=== PATIENT | female | born 1965 | race Caucasian/White ===

== ENCOUNTER → 2016-11-12 | Outpatient (CLI) | payer OTHER ==
--- NOTE | 2016-11-12 07:56 | MR ---
EXAMINATION TYPE: MR knee LT wo con DATE OF EXAM: 11/12/2016 6:24 AM COMPARISON: NONE HISTORY: Left knee pain and swelling for 2 months. TECHNIQUE: Multiplanar, multisequence images of the knee is performed without IV contrast. FINDINGS: MEDIAL MENISCUS: There is some increased linear signal central body extending towards posterior horn of medial meniscus seen best on sagittal image 24 and coronal image 18, does not distinctly extend to articular surface. LATERAL MENISCUS: Anterior and posterior horns are intact without tear. CRUCIATE LIGAMENTS: The anterior and posterior cruciate ligaments are intact and unremarkable. COLLATERAL LIGAMENTS: The medial collateral ligament and lateral collateral ligament complex are inta ct and unremarkable. EXTENSOR MECHANISM: Visualized quadriceps and patellar tendons are intact. EFFUSION: There is moderate size suprapatellar joint effusion. POPLITEAL CYST: There is moderate-sized popliteal/cash cyst measuring 4.9 cm on long axis on sagitta l image 22. Some adjacent fluid extending inferiorly and posteriorly suggests leak. TRICOMPARTMENT SPACES: Mild joint space loss lateral and medial tibiofemoral compartments with mild s purring is seen. There is more moderate to severe joint space loss patellofemoral compartment with mi ld spurring. CARTILAGE: There is full-thickness cartilaginous loss or significant chondromalacia patella along the posterior patellar pole noted. Articular cartilage is fairly well-maintained medial and lateral tib iofemoral compartments. BONE MARROW SIGNAL: In the fibular head there is 1.4 x 1.0 cm heterogeneous lesion with round T2 hype rintense areas, etiology uncertain favor benign process. There are some areas of increased signal presumed edema along the posterior patellar pole for referen ce axial image 20 sites of full-thickness cartilaginous loss. OTHER: No additional significant abnormality is appreciated. IMPRESSION: 1. Intrasubstance tear central body and posterior horn of medial meniscus. 2. Moderate to advanced degenerative changes patellofemoral compartment with prominent cartilaginous loss and full-thickness chondromalacia patella with associated bony changes or osseous edema along th e posterior patellar pole noted. 3. Moderate suprapatellar joint effusion. 4. Moderate leaking Cash's cyst.
== END | disposition home or self-care (01) ==
LOC: RADMRIMAIN 05:45
PROVIDERS: ATTEND Internal Medicine
DX: S83.242A Other tear of medial meniscus, current injury, left knee, initial encounter (principal); M22.42 Chondromalacia patellae, left knee; M25.462 Effusion, left knee; M66.0 Rupture of popliteal cyst; Y99.9 Unspecified external cause status

== ENCOUNTER → 2017-09-16 | Outpatient (CLI) | payer OTHER ==
--- NOTE | 2017-09-16 16:27 | CT ---
EXAMINATION TYPE: CT abdomen pelvis w con DATE OF EXAM: 09/16/2017 HISTORY: Lower pelvic pain that is worsening. CT DLP: 1434mGycm Automated Exposure Control for Dose Reduction was Utilized. CONTRAST: CT scan of the abdomen and pelvis is performed with oral and with IV Contrast, patient injected with 100 mL of Omnipaque 300. COMPARISON: None. FINDINGS: LUNG BASES: No significant abnormality is appreciated. LIVER/GB: No significant abnormality is appreciated. PANCREAS: No significant abnormality is seen. SPLEEN: No significant abnormality is seen. ADRENALS: No significant abnormality is seen. KIDNEYS: No significant abnormality is seen. BOWEL: Oral contrast reaches level of the hepatic flexure. There is no suspicious small or large stanley l dilatation seen. There is some redundancy of the sigmoid colon. UTERUS/ADNEXA: Anteverted uterus is seen. There is diverging uterine horns towards fundus suggesting arcuate type uterus seen best on coronal images. Endometrium is prominent or abnormal if patient is p ostmenopausal, correlate clinically. Pelvic ultrasound can be performed to further evaluate based on clinical correlation is necessary. Both ovaries are seen. No suspicious enlargement is present. LYMPH NODES: No greater than 1cm abdominal or pelvic lymph nodes are appreciated. OSSEOUS STRUCTURES: No significant abnormality is seen. OTHER: No significant additional abnormality is seen. IMPRESSION: Attention to the uterus as detailed above. No significant acute finding is seen to accoun t for patient's clinical symptoms.
== END | disposition home or self-care (01) ==
LOC: RADCTMAIN 15:51
PROVIDERS: ATTEND Internal Medicine
DX: R10.31 Right lower quadrant pain (principal)
CPT/HCPCS: 74177; Q9967

== ENCOUNTER → 2017-10-07 | Outpatient (CLI) | payer OTHER ==
--- NOTE | 2017-10-08 11:39 | MM ---
Reason for exam: screening (asymptomatic). Last mammogram was performed 2 years and 9 months ago. Physical Findings: A clinical breast exam by your physician is recommended on an annual basis and results should be correlated with mammographic findings. MG Screening Mammo w CAD Bilateral CC and MLO view(s) were taken. Prior study comparison: December 20, 2014, bilateral MG screening mammo w CAD. April 30, 2014, right breast MG diagnostic mammo RT w CAD. The breast tissue is heterogeneously dense. This may lower the sensitivity of mammography. No suspicious abnormality. No significant changes when compared with prior studies. ASSESSMENT: Negative, BI-RAD 1 RECOMMENDATION: Routine screening mammogram of both breasts in 1 year.
== END | disposition home or self-care (01) ==
LOC: RADMAMWWP 10:43
PROVIDERS: ATTEND Internal Medicine
DX: Z12.31 Encounter for screening mammogram for malignant neoplasm of breast (principal)
CPT/HCPCS: 77067

== ENCOUNTER 2018-01-21 14:21 | Emergency (ER) | payer OTHER ==
[2018-01-21 14:25] VITALS: TEMP 98.4
[2018-01-21] MEDS ORDERED: diphenhydrAMINE 50 MG/ML 1 ML VIAL IVP STA (14:57)
[2018-01-21] MEDS ORDERED: methylPREDNISolone SOD SUCCI 125 MG/2 ML VIAL IV STA (14:57)
[2018-01-21] MEDS ORDERED: FAMOTIDINE 20 MG/2 ML VIAL IV STA (14:57)
[2018-01-21] MEDS ORDERED: IPRATROPIUM-ALBUTEROL 3 ML NEB INHALATION STA (14:58)
--- NOTE | 2018-01-21 15:01 | ED ---
General Adult HPI - General Chief complaint: Shortness of Breath Stated complaint: Asthma Time Seen by Provider: 01/21/18 14:55 Source: patient, RN notes reviewed Mode of arrival: ambulatory Limitations: no limitations - History of Present Illness Initial comments: Patient is a pleasant 52-year-old female presenting to the emergency Department with ALLERGIC reaction. Patient states couple hours ago she was mixing some powdered fiber. Patient states this did call up on her and got on her face. Patient also believes somebody fiber. Patient has felt like she is having ALLERGIC reaction since that time. Patient does have some swelling of her face and upper mouth. Patient I is irritated. Patient does feel short of breath. Patient has had similar symptoms previously associated with ALLERGIC reaction. Patient does have history of asthma, last asthma attack was a couple years ago. Patient did try some pediatric albuterol earlier without much improvement of symptoms. - Related Data Home Medications Medication Instructions Recorded Confirmed Desloratadine [Clarinex] 5 mg PO DAILY 01/13/15 01/21/18 Esomeprazole Magnesium [NexIUM] 40 mg PO DAILY 01/13/15 01/21/18 Propafenone [Rythmol] 225 mg PO Q8H 01/13/15 01/21/18 Albuterol Inhaler [Ventolin Hfa 2 puff INHALATION RT-Q6H PRN 01/21/18 01/21/18 Inhaler] Ibuprofen [Motrin] 800 mg PO TID PRN 01/21/18 01/21/18 diphenhydrAMINE [Benadryl] 25 mg PO DAILY PRN 01/21/18 01/21/18 Previous Rx's Medication Instructions Recorded Albuterol Inhaler [Ventolin Hfa 2 puff INHALATION Q4HR PRN #1 01/21/18 Inhaler] inhaler predniSONE 20 mg PO BID #10 tab 01/21/18 Allergies Allergy/AdvReac Type Severity Reaction Status Date / Time erythromycin base Allergy Unknown Verified 01/21/18 15:24 Penicillins Allergy Unknown Verified 01/21/18 15:24 atorvastatin calcium AdvReac Unknown Verified 01/21/18 15:24 [From Lipitor] codeine AdvReac Unknown Verified 01/21/18 15:24 lidocaine AdvReac Unknown Verified 01/21/18 15:24 metoprolol tartrate AdvReac Unknown Verified 01/21/18 15:24 [From Lopressor] procainamide HCl AdvReac Unknown Verified 01/21/18 15:24 [From Procan SR] rosuvastatin calcium AdvReac Unknown Verified 01/21/18 15:24 [From Crestor] Sulfa (Sulfonamide AdvReac Unknown Verified 01/21/18 15:24 Antibiotics) Review of Systems ROS Statement: Those systems with pertinent positive or pertinent negative responses have been documented in the HPI. ROS Other: All systems not noted in ROS Statement are negative. Constitutional: Denies: fever Eyes: Reports: other (Right eye itching in her to the) ENT: Denies: throat pain Respiratory: Reports: dyspnea Cardiovascular: Denies: palpitations Endocrine: Denies: fatigue Gastrointestinal: Denies: abdominal pain Genitourinary: Denies: dysuria Musculoskeletal: Denies: back pain Skin: Denies: lesions Neurological: Denies: weakness Past Medical History Past Medical History: Atrial Fibrillation, Asthma, GERD/Reflux, Hyperlipidemia History of Any Multi-Drug Resistant Organisms: None Reported Past Surgical History: Section Past Psychological History: No Psychological Hx Reported Smoking Status: Former smoker Past Alcohol Use History: None Reported Past Drug Use History: None Reported General Exam Limitations: no limitations General appearance: alert, in no apparent distress Head exam: Present: atraumatic Eye exam: Present: conjunctival injection (Right-sided) ENT exam: Present: other (Minimal uvula edema) Neck exam: Present: normal inspection Respiratory exam: Present: wheezes Cardiovascular Exam: Present: regular rate, normal rhythm GI/Abdominal exam: Present: soft. Absent: tenderness Extremities exam: Present: normal inspection Neurological exam: Present: alert Psychiatric exam: Present: normal affect, normal mood Skin exam: Present: other (Facial flushing) Course Vital Signs 01/21/18 01/21/18 01/21/18 14:23 14:32 15:01 Temperature 98.4 F Pulse Rate 92 82 Respiratory 26 H 20 18 Rate Blood Pressure 127/80 185/72 O2 Sat by Pulse 93 L 96 Oximetry 01/21/18 01/21/18 15:10 15:18 Temperature Pulse Rate 80 80 Respiratory Rate Blood Pressure O2 Sat by Pulse Oximetry Medical Decision Making - Medical Decision Making Patient reevaluated and significantly improved. Lung sounds are clear to auscultation. No facial flushing. Conjunctival injection has resolved. Patient is symptom-free and request discharge home. Patient advised to continue Claritin. Disposition Clinical Impression: Allergic reaction Disposition: HOME SELF-CARE Condition: Stable Instructions: Bronchospasm (ED), Allergies (ED) Additional Instructions: Continue Claritin. Return for difficulty in breathing, swelling of the throat or tongue or lips, worsening symptoms or other concerns. Prescriptions: Albuterol Inhaler [Ventolin Hfa Inhaler] 2 puff INHALATION Q4HR PRN #1 inhaler PRN Reason: Dyspnea predniSONE 20 mg PO BID #10 tab Is patient prescribed a controlled substance at d/c from ED?: No Referrals: Raúl Kee MD [Primary Care Provider] - 1-2 days Time of Disposition: 16:35
[2018-01-21 16:49] VITALS: BP 124/65; PULSE 75; RESP 16
== END 2018-01-21 16:49 | disposition home or self-care (01) ==
LOC: EC 14:21
DX: R06.02 Shortness of breath (principal); R22.0 Localized swelling, mass and lump, head; T50.995A Adverse effect of other drugs, medicaments and biological substances, initial encounter; I48.91 Unspecified atrial fibrillation; K21.9 Gastro-esophageal reflux disease without esophagitis; Z88.0 Allergy status to penicillin; Z88.1 Allergy status to other antibiotic agents; Z88.2 Allergy status to sulfonamides; Z88.4 Allergy status to anesthetic agent; Z88.5 Allergy status to narcotic agent; Z88.8 Allergy status to other drugs, medicaments and biological substances; Z79.899 Other long term (current) drug therapy; Z87.891 Personal history of nicotine dependence
CPT/HCPCS: 99284; 96374; 96375 ×2; 94640; J1200; J2930

== ENCOUNTER → 2018-08-08 | Outpatient (CLI) | payer OTHER ==
--- NOTE | 2018-08-08 14:11 | CT ---
EXAMINATION TYPE: CT abdomen pelvis w con DATE OF EXAM: 08/08/2018 COMPARISON: 09/16/2017 HISTORY: right side groin pain after hernia repair [id number] CT DLP: 1796.2 mGycm CONTRAST: CT scan of the abdomen and pelvis is performed with Oral Contrast and with IV Contrast, patient injec azra with 100 mL of Isovue 300. FINDINGS: LUNG BASES-: No visible nodule. No infiltrate. Small hiatal hernia. LIVER/GB: No calcified gallstones. No space occupying hepatic lesion. Biliary tree is of normal ca liber. PANCREAS: No inflammation. No distinct mass. SPLEEN: No splenic enlargement. No lesion seen. ADRENALS: No nodule. No thickening. KIDNEYS/BLADDER: No hydronephrosis. No nephrolithiasis. No distinct renal mass. Urinary bladder g rossly unremarkable. BOWEL: Normal appendix. Normal bowel caliber. No inflammation. GENITAL ORGANS: Right ovarian cyst measuring 1.9 cm. Left ovarian cystic lesion measuring 4.1 cm. No uterine masses identified. LYMPH NODES: No greater than 1cm abdominal or pelvic lymph nodes are appreciated. AORTA: No significant abnormality. OSSEOUS STRUCTURES: No significant abnormality is seen. OTHER: No significant additional abnormality is seen. IMPRESSION: 1. Ovarian cystic changes noted.
== END ==
LOC: RADCTMAIN 11:58
PROVIDERS: ATTEND Internal Medicine
DX: N83.209 Unspecified ovarian cyst, unspecified side (principal)
CPT/HCPCS: 74177; Q9967

== ENCOUNTER → 2019-06-11 | Outpatient (CLI) | payer OTHER ==
--- NOTE | 2019-06-12 13:33 | MM ---
Reason for exam: screening (asymptomatic). Last mammogram was performed 1 year and 8 months ago. Physical Findings: A clinical breast exam by your physician is recommended on an annual basis and results should be correlated with mammographic findings. MG Screening Mammo w CAD Bilateral CC, MLO, and XCCL view(s) were taken. Prior study comparison: October 07, 2017, bilateral MG screening mammo w CAD. December 20, 2014, bilateral MG screening mammo w CAD. The breast tissue is heterogeneously dense. This may lower the sensitivity of mammography. Finding #1: There is a 10 mm obscured lobulated mass located 3-4 cm from the nipple in the anterior middle position of the left breast. Finding #2: There are typically benign round calcifications in both breasts. ASSESSMENT: Incomplete: need additional imaging evaluation, BI-RAD 0 RECOMMENDATION: Ultrasound of the left breast. [facility] will attempt to contact patient to return for ultrasound.
== END | disposition home or self-care (01) ==
LOC: RADMAMWWP 14:31
PROVIDERS: ATTEND Internal Medicine
DX: Z12.31 Encounter for screening mammogram for malignant neoplasm of breast (principal)
CPT/HCPCS: 77067

== ENCOUNTER → 2019-06-26 | Outpatient (CLI) | payer OTHER ==
--- NOTE | 2019-06-29 09:02 | USB ---
Reason for exam: additional evaluation requested from abnormal screening. US Breast Workup Limited LT Left limited breast ultrasound including focal area of concern, retroareolar and axilla demonstrates a 0.3 x 0.3 x 0.3cm cystic lesion at 3 o'clock and a 0.5 x 0.4 x 0.5cm cystic lesion at 5 o'clock. Retrospectively the central left focal asymmetry is stable back to 2015 representing fibroglandular tissue. These results were verbally communicated with the patient and result sheet given to the patient on 06/26/19. ASSESSMENT: Benign, BI-RAD 2 RECOMMENDATION: Return to routine screening mammogram schedule for both breasts.
== END | disposition home or self-care (01) ==
LOC: RADUSWWP 13:32
PROVIDERS: ATTEND Internal Medicine
DX: R92.8 Other abnormal and inconclusive findings on diagnostic imaging of breast (principal)

== ENCOUNTER → 2021-07-21 | Outpatient (CLI) | payer OTHER ==
--- NOTE | 2021-07-24 12:28 | MM ---
Reason for exam: screening (asymptomatic). Last mammogram was performed 2 years and 1 month ago. History: Family history of breast cancer in sister at age 54. Physical Findings: A clinical breast exam by your physician is recommended on an annual basis and results should be correlated with mammographic findings. MG Screening Mammo w CAD Bilateral CC and MLO view(s) were taken. Prior study comparison: June 11, 2019, bilateral MG screening mammo w CAD. October 07, 2017, bilateral MG screening mammo w CAD. The breast tissue is heterogeneously dense. This may lower the sensitivity of mammography. There are benign appearing round calcifications bilaterally. There is no discrete abnormality. ASSESSMENT: Benign, BI-RAD 2 RECOMMENDATION: Routine screening mammogram of both breasts in 1 year.
== END | disposition home or self-care (01) ==
LOC: RADMAMWWP 14:58
PROVIDERS: ATTEND Family Medicine
DX: Z12.31 Encounter for screening mammogram for malignant neoplasm of breast (principal); Z80.3 Family history of malignant neoplasm of breast
CPT/HCPCS: 77067

== ENCOUNTER → 2022-12-12 | Outpatient (CLI) | payer OTHER ==
--- NOTE | 2022-12-12 12:50 | US ---
EXAMINATION TYPE: US groin LT DATE OF EXAM: 12/12/2022 COMPARISON: CT abdomen and pelvis 2017 CLINICAL INDICATION: Female, 57 years old with history of K40.90 LT INGUINAL HERNIA, W/O OBST OR GANG R, NO; TECHNIQUE: Scanned over the patient's left groin/pubic area as directed by patient as her area of pa in. FINDINGS: No abnormality noted by US. Results called to Khushbu in the office at the time of the exam. IMPRESSION: Images obtained show no worrisome solid or cystic mass or fluid collection. No bowel con taining hernia is evident.
== END | disposition home or self-care (01) ==
LOC: RADUSWWP 12:18
PROVIDERS: ATTEND Family Medicine
DX: K40.90 Unilateral inguinal hernia, without obstruction or gangrene, not specified as recurrent (principal)

== ENCOUNTER → 2023-10-07 | Outpatient (CLI) | payer OTHER ==
[2023-10-07 14:54] LABS: Basophils # (A) 0.04 X 10*3/uL (0.00-0.10); Basophils % (A) 0.7 %; Eosinophils # (A) 0.28 X 10*3/uL (0.04-0.35); Eosinophils % (A) 5.1 %; HCT 41.5 % (37.2-46.3); HGB 13.9 g/dL (12.0-15.0); Lymphocytes # (A) 1.43 X 10*3/uL (0.90-5.00); MCH 31.3 pg (27.0-32.0); MCHC 33.5 g/dL (32.0-37.0); MCV 93.5 FL (80.0-97.0); Mean Platelet Volume 10.3 FL (9.5-12.2); Monocytes # (A) 0.32 X 10*3/uL (0.20-1.00); Monocytes % (A) 5.8 %; NRBC Per 100 WBC 0 X 10*3/uL (0.00-0.01); Neutrophils # (A) 3.42 X 10*3/uL (1.80-7.70); Neutrophils % (A) 62.2 %; Platelet Count 306 X 10*3/uL (140-440); RBC 4.44 X 10*6/uL (4.10-5.20); RDW 12.3 % (11.5-14.5)
[2023-10-07 15:46] LABS: ALT 29 U/L (8-44); AST 30 U/L (13-35); Albumin 4.3 g/dL (3.8-4.9); Albumin/Globulin Ratio 1.65 Ratio (1.60-3.17); Alkaline Phosphatase 84 U/L (41-126); Blood Urea Nitrogen 10.5 mg/dL (9.0-27.0); Calcium 9.9 mg/dL (8.7-10.3); Carbon Dioxide 27.2 mmol/L (21.6-31.8); Chloride 104 mmol/L (96-109); Chol/HDL Ratio 4.67 Ratio; Globulin 2.6 g/dL (1.6-3.3); Glucose 96 mg/dL (70-110); LDL Cholesterol,Calculated 173.4 mg/dL (0.0-131.0); Potassium 4.6 mmol/L (3.5-5.5); Sodium 141 mmol/L (135-145); T4, Free (Free Thyroxine) 1.07 ng/dL (0.80-1.80); Total Bilirubin 0.4 mg/dL (0.3-1.2); Total Protein 6.9 g/dL (6.2-8.2)
== END | disposition home or self-care (01) ==
LOC: LABWHC1 10:00
PROVIDERS: ATTEND Student in an Organized Health Care Education/Training Program
DX: Z51.81 Encounter for therapeutic drug level monitoring (principal); Z79.899 Other long term (current) drug therapy
CPT/HCPCS: 36415; 80053; 80061; 82306; 83036; 84439; 84443; 85025